=== PATIENT | female | born 2000 | race Hispanic/Latino ===

== ENCOUNTER 2024-10-17 16:39 | Observation (INO) | payer BC, SELFPAY ==
[2024-10-17] VITALS (7 sets, daily range): BP systolic 96–109; BP diastolic 57–75; PULSE 79–107; RESP 16; TEMP 36.5; O2SAT 99; BMI 20.8
--- NOTE | 2024-10-17 17:13 | ED.ABDPAIN ---
HPI - Abdominal Pain General Chief Complaint: Abdominal Pain Stated Complaint: forklift accident, 25 weeks preg Time Seen by Provider: 10/17/24 17:05 Source: patient Mode of arrival: ambulatory Limitations: no limitations History of Present Illness HPI narrative: 23-year-old female approximately 25 weeks presents to the ED after sustaining a forklift accident in which her abdomen struck the steering wheel. Patient stated last menstrual period is 04/26/2024 in her stated estimated due date is 01/30/2025. Her OB Gyne is Dr Bui. She denies any complications during this , has not been told any issues with her placenta. Patient plans to deliver at [facility]. Patient had initially been seen at [place] for this earlier today. She had been accepted for transfer at [facility] and was to go by private vehicle (accepting physicians are listed as Dr Minaya and Dr Rai) for further monitoring/evaluation. However, she elected to present to our hospital instead. Patient reports that she has not yet had any pain medications prior to arrival. She describes slight abdominal pain like a cramping sensation but denies any contractions, leakage of fluid, or vaginal bleeding or spotting. She continues to feel movements without any change. Related Data Allergies Allergy/AdvReac Type Severity Reaction Status Date / Time No Known Allergies Allergy Verified 10/17/24 18:07 Exam Narrative: GENERAL: Well-appearing, well-nourished, and in no acute distress. HEAD: Normocephalic, atraumatic. EYES: Non injected, non icteric ENT: Nares clear, no rhinorrhea or epistaxis. Gross auditory acuity intact. NECK: Supple. No meningismus. CHEST: Speaking in full sentences. No respiratory distress. HEART: Regular rate and rhythm. . ABDOMEN: Gravid with fundal height approximately 4-5cm above umbilicus. Otherwise Soft, nondistended. No rigidity or guarding. Not peritoneal. No tenderness throughout. No overlying ecchymosis. EXTREMITIES: Normal range of motion. No lower extremity edema. SKIN: Warm, dry, no rash. NEURO: No focal deficits. Alert and oriented. Answering questions. Following commands. Normal speech without aphasia or dysarthria. PSYCH: Normal mood and affect. Course Vital Signs Vital signs: Vital Signs Temperature 97.7 F 10/17/24 16:45 Pulse Rate 107 H 10/17/24 16:45 Respiratory Rate 16 10/17/24 16:45 Blood Pressure 106/62 10/17/24 16:45 Pulse Oximetry 99 10/17/24 16:45 Oxygen Delivery Room Air 10/17/24 16:45 Temperature 97.7 F 10/17/24 16:45 Pulse Rate 107 H 10/17/24 16:45 Respiratory Rate 16 10/17/24 16:45 Blood Pressure 106/62 10/17/24 16:45 Pulse Oximetry 99 10/17/24 16:45 Oxygen Delivery Room Air 10/17/24 16:45 MDM - Abdominal Pain MDM Narrative Medical decision making narrative: 23-year-old at 24w6d GA by stated LMP 04/26/24 versus 25w0d by stated TANISHA 01/30/25. In the emergency department she is afebrile with vital signs notable for tachycardia. Will give acetaminophen. RN notes FHR was 160bpm. POC US performed at bedside by myself. There is a fetus consistent with stated dates with good movement and FHR 156. 2+ ketonuria but otherwise urine does not appear infected or even with bacteriuria. Discussed patient with hospital personnel director OBGyn Dr Mcgill and expained the story. He verifies understanding. Given we have no record of her/she does not follow here, don't know her blood type so this is ordered in addition to basic labs. Advised we send her over to L&D and they will get her on the monitor and contact him for evaluation. Labs were drawn by RN and will be sent but can/will be followed up with there. Patient transferred over to L&D/OBGyn. No DC instructions were provided to patient in the ED for this reason. Differential Diagnosis Differential diagnosis: Likely abdominal pain and other (Blunt trauma to abdomen,; placenta previa; placenta abruption; intrauterine demise) Lab Data Attestation: I reviewed the patient's lab results. Labs: Lab Results 10/17/24 10/17/24 Range/Units 17:48 17:49 Urine Color Yellow (Yellow) Urine Appearance Clear (Clear) Urine pH 6.0 (5.0-9.0) Ur Specific [place] 1.026 (1.001-1.035) Urine Protein Negative (Negative) mg/dL Urine Glucose (UA) Negative (Negative) mg/dL Urine Ketones 2+ H (Negative) mg/dL Ur Blood (Man) Negative (Negative) Urine Nitrate Negative (Negative) Urine Bilirubin Negative (Negative) Urine Urobilinogen 1.0 (<2.0) mg/dL Leukocyte Esterase Rfl Negative (Negative) ANT/UL POC Urine HCG, Qual Positive (Negative) Discharge Plan Discharge Clinical Impression: Second trimester Blunt trauma to abdomen Qualifiers: Encounter type: initial encounter Qualified Code(s): S39.91XA - Unspecified injury of abdomen, initial encounter Patient Disposition: Still a Patient Condition: Stable Instructions: Antibiotic Form Patient Language: Egyptian Follow-up/Referrals: PHYSICIAN,DETHISTLER OPERATOR [Primary Care Provider] -
--- OUTSIDE RECORDS SUMMARY | 2024-10-17 17:50 | XMS_ITS | Referral Summary ---
Author Organization [facility] Address [address] [place] [address] Care Team Providers Care Materials Handling Coordinator Name Role Phone No, Physician Primary Care Provider Encounters Date Type Department Care Team Description 10/12/2024 3:15 PM CDT Office Visit [facility] Obstetrical Gynecology [address] [place] [phone] Phoebe Romo MD Third trimester (Primary Dx); Encounter for supervision of normal in first trimester, unspecified 09/15/2024 Orders Only [facility] [address] [place] [phone] Dereje Bui MD Large for gestational age fetus affecting management of mother, antepartum, third trimester, fetus 1 (Primary Dx) 09/15/2024 Telephone [facility] [address] [place] [phone] Dereje Bui MD 09/14/2024 3:00 PM CDT Ancillary Procedure [facility] [address] [place] [phone] Encounter for anatomic survey 09/14/2024 4:00 PM CDT Office Visit [facility] [address] [place] [phone] Dereje Bui MD Encounter for related examination in second trimester (Primary Dx) 08/28/2024 11:30 AM CDT Lab [facility] [address] [place] [phone] Elevated hemoglobin A1c 08/19/2024 Results Follow-Up [facility] [address] [place] [phone] Dereje Bui MD Rubella IgG antibody Blood, RPR Blood, Measles IgG antibody Blood, Additional followed-up results: 12 08/17/2024 Telephone [facility] [address] [place] [phone] Dereje Bui MD 08/16/2024 4:43 PM CDT - 08/16/2024 11:59 PM CDT Hospital Encounter [facility] [address] [place] [phone] Encounter for supervision of normal in first trimester, unspecified ; Encounter for related examination in second trimester Discharge Disposition: Discharge to home or self care 08/16/2024 Telephone [facility] [address] [place] [phone] Dereje Bui MD 08/16/2024 12:05 PM CDT Lab [facility] [address] [place] [phone] Encounter for supervision of normal in first trimester, unspecified 08/16/2024 1:15 PM CDT Office Visit [facility] Medical [facility] Obstetrical Gynecology [address] [place] [phone] Dereje Bui MD Encounter for related examination in second trimester (Primary Dx); Encounter for supervision of normal in first trimester, unspecified ; Gastroesophageal reflux disease, unspecified whether esophagitis present 08/16/2024 11:15 AM CDT Clinical Support [facility] [address] [place] [phone] 08/16/2024 10:45 AM CDT Ancillary Procedure [facility] Obstetrical Gynecology [address] [facility] [address] [place] [address] Establish gestational age, ultrasound from Last 3 Months Allergies No known active allergies Medications simethicone (MYLICON) 125 mg chewable tablet Take 1 tablet (125 mg total) by mouth every 6 (six) hours as needed for flatulence 30 tablet [address] (PROTONIX) 20 mg EC tablet Take 1 tablet (20 mg total) by mouth 2 (two) times a day 60 tablet 5 5 Active polyethylene glycol (MIRALAX) 17 gram/dose bulk powder Take 17 g by mouth daily 510 g 3 5 Active Additional Information Patient not taking.Reported on 10/12/2024 vitamin ferrous fumarate-folic () 28 mg iron- 800 mcg tablet Take 1 tablet by mouth daily 30 tablet 11 5 08/17/19 26 Active doxycycline (doxycycline hyclate) 100 mg capsule TAKE 1 CAPSULE BY MOUTH TWICE DAILY FOR 14 DAYS Active vitamin ferrous fumarate-folic () 28 mg iron- 800 mcg tablet Take 1 tablet by oral route for 30 days. 5 Active dicyclomine (BENTYL) 10 mg capsule Take 1 capsule 3 times a day by oral route as needed for 30 days, for DIARRHEA/ PAIN. Active dicyclomine (BENTYL) 20 mg tablet Active Active Problems Problem Noted Date Diagnosed Date Supervision of normal first , antepartu m 08/16/2024 Gastroesophageal reflux disease 08/16/2024 Irritable bowel syndrome with diarrhea 4 Estimated Date of Delivery Comme nts Yes 01/31/2025 Based on last me nstrual period of 04/26/2024 Social History Tobacco Use Types Packs/Day Years Used Date Smoking Tobacco: Never Smokeless Tobacco: Never Tobacco Cessation:Counseling Given: Not Answered Lamont Depression Scale Answer Date Recorded Lamont Depression Scale Total 6 08/16/2024 The thought of harming myself has occurred to me . Never 08/16/2024 Estimated Date of Delivery Comme nts Yes 01/31/2025 Based on last me nstrual period of 04/26/2024 Sex and Gender Information Value Date Recorded Sex Assigned at Not on file Legal Sex Female 3:16 PM CDT Gender Identity Not on file Sexual Orientation Not on file Last Filed Vital Signs Vital Sign Reading Time Taken Comments Blood Pressure 100/60 10/12/2024 3:27 PM CDT Pulse - - Temperature - - Respiratory Rate - - Oxygen Saturation - - Inhaled Oxygen Concentration - - Weight 55.3 kg (122 lb) 10/12/2024 3:27 PM CDT Height 165.1 cm (5' 5) 10/12/2024 3:27 PM CDT Body Mass Index 20.3 10/12/2024 3:27 PM CDT Plan of Treatment Not on file Procedures Procedure Name Priority Date/Time Associated Diagnosis Comments US OB 14 WEEKS OR OVER W ENDOVAGINAL Schedule Routine, Read Routine (OP Routine) 09/14/2024 3:06 PM CDT Encounter for anatomic survey GTT 50GM 1HR GESTATIONAL SCREEN Routine 08/28/2024 12:43 PM CDT Elevated hemoglobin A1c PANORAMA TEST Routine 2:01 PM CDT Encounter for supervision of normal in first trimester, unspecified HORIZON 14 (VALENTINO-ETHNIC STANDARD) Routine 08/16/2024 2:01 PM CDT Encounter for supervision of normal in first trimester, unspecified PAP WITH REFLEX TO HIGH RISK HPV Routine 08/16/2024 1:50 PM CDT Encounter for related examination in second trimester Encounter for supervision of normal in first trimester, unspecified THINPREP PROCESSING (MOLECULAR COMPONENT) Routine 08/16/2024 1:50 PM CDT Encounter for related examination in second trimester Encounter for supervision of normal in first trimester, unspecified N. GONORRHOEAE/C. TRACHOMATIS AMPLIFICATION Routine 08/16/2024 1:50 PM CDT Encounter for related examination in second trimester Encounter for supervision of normal in first trimester, unspecified TRICHOMONAS VAGINALIS PCR Routine 08/16/2024 1:50 PM CDT Encounter for related examination in second trimester Encounter for supervision of normal in first trimester, unspecified DRUGS OF ABUSE SCREEN, URINE WITH REFLEX CONFIRMATION Routine 08/16/2024 1:20 PM CDT Encounter for supervision of normal in first trimester, unspecified URINE CULTURE Routine 08/16/2024 1:20 PM CDT Encounter for supervision of normal in first trimester, unspecified ANTIBODY SCREEN Routine 08/16/2024 12:22 PM CDT Encounter for supervision of normal in first trimester, unspecified ABO/RH Routine 08/16/2024 12:22 PM CDT Encounter for supervision of normal in first trimester, unspecified CBC WITHOUT DIFFERENTIAL Routine 08/16/2024 12:22 PM CDT Encounter for supervision of normal in first trimester, unspecified HEMOGLOBIN A1C Routine 08/16/2024 12:22 PM CDT Encounter for supervision of normal in first trimester, unspecified HEMOGLOBIN ANALYSIS BY ELECTROPHORESIS Routine 08/16/2024 12:22 PM CDT Encounter for supervision of normal in first trimester, unspecified TYPE AND SCREEN Routine 08/16/2024 12:22 PM CDT Encounter for supervision of normal in first trimester, unspecified VARICELLA ZOSTER ANTIBODY, IGG Routine 08/16/2024 12:22 PM CDT Encounter for supervision of normal in first trimester, unspecified HEPATITIS B SURFACE ANTIGEN Routine 08/16/2024 12:22 PM CDT Encounter for supervision of normal in first trimester, unspecified HEPATITIS C ANTIBODY Routine 08/16/2024 12:22 PM CDT Encounter for supervision of normal in first trimester, unspecified HIV 1/2 ANTIBODY PLUS P24 ANTIGEN Routine 08/16/2024 12:22 PM CDT Encounter for supervision of normal in first trimester, unspecified MEASLES IGG ANTIBODY Routine 08/16/2024 12:22 PM CDT Encounter for supervision of normal in first trimester, unspecified RPR Routine 08/16/2024 12:22 PM CDT Encounter for supervision of normal in first trimester, unspecified RUBELLA IGG Routine 08/16/2024 12:22 PM CDT Encounter for supervision of normal in first trimester, unspecified US OB UNDER 14 WEEKS Schedule Routine, Read Routine (OP Routine) 08/16/2024 10:37 AM CDT Establish gestational age, ultrasound from Last 3 Months Results * US OB 14 Weeks Or Over W Endovaginal (09/14/2024 3:06 PM CDT) Fetus# Fetus1 VIEWPOINT Estimated Weight 397 g&grams VIEWPOINT Placenta Details anterior VIEWPOINT Presentation Vertex VIEWPOINT Anatomical Region Laterality Modality Abdomen N/A Ultrasound 09/14/2024 3:10 PM CDT Impressions 09/14/2024 5:00 PM CDT Physician interpretation: Single living intrauterine gestation with growth at the 90th percentile for the established gestational age of 20 weeks and 1 day. The placenta is anterior. The anatomy survey, cervical length, placentation and amniotic fluid are normal within the limitations of this study. Plan to reassess growth in the 3rd trimester. Narrative Procedure Note Dereje Bui MD - 09/14/2024 IMPRESSION: Physician interpretation: Single living intrauterine gestation withgrowth at the 90th percentile for the established gestational age of 20weeks and 1 day. The placenta is anterior. The anatomy survey,cervical length, placentation and amniotic fluid are normal within thelimitations of this study. Plan to reassess growth in the 3rdtrimester. Dereje Bui MD IMG OB US PROCEDURES Final Result * GTT 50gm 1hr gestational screen (08/28/2024 12:43 PM CDT) GTT 50g gest screen 95 <=140 mg/dL Comment: Interpretive Data Used for suspected gestational diabetes. The screening test uses 50 grams of glucose with sample obtained 1 hr later. Normal range: < 140 mg/dL. A glucose value of >140 mg/dL generally indicates the need for a full diagnostic tolerance test. Reference Interval Info: Diabetes Care 2005, Vol 28. Supplement 1,S37-S42. Report of the Expert Committee on the Diagnosis and Classification of Diabetes Mellitus. Diabetes Care 2020; 43(Supplement 1):S14-31. Current interpretive data was last revised on 2020. Testing performed by: [facility], [address] [place] [address]., [id number] Blood 08/28/2024 12:4 3 PM CDT 08/28/2024 12:51 PM CDT us Dereje Bui MD LAB BLOOD ORDERABLES Final Result [place] [address] [facility] Department [place] [address] * PANORAMA TEST (08/16/2024 2:01 PM CDT) REPORT SUMMARY LOW RISK 08/22/2024 1:30 PM CDT [facility] Comment:LOW RISK REPORT NOTE See Notes 08/22/2024 1:30 PM CDT [facility] GENDER OF FETUS Female 1:30 PM CDT [facility] FRACTION 15.0% 08/22/2024 1:30 PM CDT [facility] TRISOMY 21 RESULT TEXT Low Risk 08/22/2024 1:30 PM CDT [facility] TRISOMY 21 AGE-BASED RISK TEXT (0.09%) 08/22/2024 1:30 PM CDT [facility] TRISOMY 21 RISK SCORE TEXT <1/10,000 (<0.01%) 08/22/2024 1:30 PM CDT [facility] TRISOMY 18 RESULT TEXT Low Risk 08/22/2024 1:30 PM CDT [facility] TRISOMY 18 AGE-BASED RISK TEXT 13,179 (0.03%) 08/22/2024 1:30 PM CDT [facility] TRISOMY 18 RISK SCORE TEXT <1/10,000 (<0.01%) 08/22/2024 1:30 PM CDT [facility] TRISOMY 13 RESULT TEXT Low Risk 08/22/2024 1:30 PM CDT [facility] TRISOMY 13 AGE-BASED RISK TEXT 9,778 (0.01%) 08/22/2024 1:30 PM CDT [facility] TRISOMY 13 RISK SCORE TEXT <1/10,000 (<0.01%) 08/22/2024 1:30 PM CDT [facility] MONOSOMY X RESULT TEXT Low Risk 08/22/2024 1:30 PM CDT [facility] MONOSOMY X AGE-BASED RISK TEXT 1568 (0.18%) 08/22/2024 1:30 PM CDT [facility] MONOSOMY X RISK SCORE TEXT <1/10,000 (<0.01%) 08/22/2024 1:30 PM CDT [facility] TRIPLOIDY RESULT TEXT Low Risk 1:30 PM CDT [facility] 22Q11.2 DELETION SYNDROME RESULT TEXT Low Risk 08/22/2024 1:30 PM CDT [facility] 22Q11.2 DELETION SYNDROME POPULATION-BASED RISK TEXT 12,000 08/22/2024 1:30 PM CDT [facility] 22Q11.2 DELETION SYNDROME RISK SCORE TEXT 1/12,000 08/22/2024 1:30 PM CDT [facility] FOOTNOTES See Notes 08/22/2024 1:30 PM CDT [facility] Comment: Testing Methodology DNA isolated from maternal blood, which contains placental DNA, is amplified at specific loci using a targeted PCR assay and is sequenced using a high- throughput sequencer. fraction is determined using a proprietary algorithm incorporating data from single nucleotide polymorphism-based (SNP-based) next-generation sequencing [Pergament E et al. Obstet Gynecol. 2014 Oct;124(2 Pt 1):210-8]. If there is sufficient fraction, sequencing data is analyzed using a proprietary SNP- based algorithm to determine the copy number for chromosomes 13, 18, 21, X and Y. If ordered, specific microdeletions will be evaluated using similar methodology [Indra RIOS et al. Am J Obstet Gynecol. 2015 May;212(3):332.e1-9]. If the fraction is insufficient, an additional algorithm to determine whether there is an increased risk for triploidy, trisomy 18, and trisomy 13 may be utilized, known as fraction based risk assessment (FFBR) [Harish et al. Ultrasound Obstet Gynecol 2019; 53:73-79]. If ordered on a vanishing twin , a proprietary analysis will be performed to differentiate between the viable/living fetus and the vanished fetus to allow for risk assessment of copy number of chromosomes 13,18, 21, X, Y, and specific microdeletions in the viable/living twin using the above described SNP- based algorithm. If ordered, and patient is RHD negative by genotype, RHD status will be evaluated using a proprietary algorithm if fraction is sufficient [Emeli Barnett et al. Obstet Gynecol 2023;145:1?7]. However, some samples will not produce a result due to failure to meet the necessary quality thresholds. This test has been validated on women with a sunshine, twin, vanishing twin, or egg donor of at least nine weeks gestation. A result will not be available for higher order multiples and multiple gestation pregnancies with an egg donor or surrogate, or bone marrow transplant recipients. Complete test panel is not available for twin gestations and pregnancies achieved with an egg donor or surrogate. For twin pregnancies with a fraction value below the threshold for analysis, a sum of the fractions for both twins will be reported. As this assay is a screening test and not diagnostic, false positives and false negatives can occur. High risk test results need diagnostic confirmation by alternative testing methods. Low risk results do not fully exclude the diagnosis of any of the syndromes nor do they exclude the possibility of other chromosomal abnormalities or defects, which are not a part of this test. Potential sources of inaccurate results include, but are not limited to, mosaicism, low fraction, limitations of current diagnostic techniques, or misidentification of samples. This test will not identify all deletions associated with each microdeletion syndrome. This test has been validated for deletions ?0.5 Mb within the 22q11.2 A-D region. This test has been validated on full region deletions only for 1p36 deletion syndrome, Cri-du-chat syndrome, Prader Willi syndrome and Angelman syndrome and may be unable to detect smaller deletions. Microdeletion risk score may be dependent upon fraction, as deletions on the maternally inherited copy are difficult to identify at lower fractions. Test results should always be interpreted by a clinician in the context of clinical and familial data with the availability of genetic counseling when appropriate. Disclaimers The extraction, library preparation, and sequencing of this test were performed by [facility] [address] [place] [address] [address] [place] [address] (CLIA ID [id number]). The data analysis and reporting of this test were performed by [employer] [address] [place] [id number] (CLIA ID [id number]). The performance characteristics of this test were developed by [facility].(CLIA ID [id number]). This test has not been cleared or approved by the U.S. Food and Drug Administration (FDA). These laboratories are regulated under CLIA as qualified to perform high-complexity testing. 2024 [employer]. All Rights Reserved. Please refer to the attached PDF report Reviewed By: Rafael Bowen M.D., Ph.D., [facility], Senior First Line Production Supervisor [facility] 3D Modeler: Kristyn Borrego, Ph.D., [facility] IF THE ORDERING PROVIDER HAS QUESTIONS OR WISHES TO DISCUSS THE RESULTS, PLEASE CONTACT US AT [phone] #[phone]. Ask for the NIPT genetic counselor environmental services manager. Blood specimen (specimen) Venous blood specimen / Unknown 08/16/2024 2:01 PM CDT 08/22/2024 1:30 PM CDT Dereje Bui MD LAB GENETIC TESTING Final Result [facility] [address] [place] [address], [facility] * Horizon 14 (Valentino-Ethnic Standard) (08/16/2024 2:01 PM CDT) REPORT SUMMARY Negative 08/24/2024 4:34 PM CDT [facility] Comment:Negative for 14 out of 14 diseases. ALPHA-THALASSEMIA Negative 025 4:34 PM CDT [facility] BETA-HEMOGLOBINOP ATHIES Negative 08/24/2024 4:34 PM CDT [facility] SELVIN DISEASE Negative 4:34 PM CDT [facility] CYSTIC FIBROSIS Negative 4:34 PM CDT [facility] DUCHENNE/CAVAZOS MUSCULAR DYSTROPHY Negative 08/24/2024 4:34 PM CDT [facility] FAMILIAL DYSAUTONOMIA Negative 08/24/2024 4:34 PM CDT [facility] FRAGILE X SYNDROME Negative 08/24/2024 4:34 PM CDT [facility] Comment: NEGATIVE Fragile X Syndrome (X-linked) results 30 and 30 CGG repeats were detected in the FMR1 genes. GALACTOSEMIA Negative 08/24/2024 4:34 PM CDT [facility] GAUCHER DISEASE Negative 4:34 PM CDT [facility] MEDIUM CHAIN ACYL-COA DEHYDROGENASE DEFICIENCY Negative 08/24/2024 4:34 PM CDT [facility] POLYCYSTIC KIDNEY DISEASE AUTOSOMAL RECESSIVE Negative 08/24/2024 4:34 PM CDT [facility] ANIJB-RMHAM-JHSDX SYNDROME Negative 08/24/2024 4:34 PM CDT [facility] SPINAL MUSCULAR ATROPHY Negative 08/24/2024 4:34 PM CDT [facility] Comment: NEGATIVE Spinal Muscular Atrophy (SMA) Results SMN1: Two copies; [id number]>G: absent; the absence of the g.51427V>G variant decreases the chance to be a silent (2+0) carrier. JUAN-SACHS DISEASE Negative 025 4:34 PM CDT [facility] PANEL NOTES See Notes 08/24/2024 4:34 PM CDT [facility] REPORT NOTE See Notes 08/24/2024 4:34 PM CDT [facility] FOOTNOTES See Notes 08/24/2024 4:34 PM CDT [facility] Comment: Please see the attached PDF for information regarding Conditions, Methodology, Disclaimers, and further information. Test performed by [facility]. : [id number] [facility], [address], [place] [address] CLIA ID #[id number] CLIA 3D Modeler: Kristyn Borrego, Ph.D., [facility] Blood specimen (specimen) Venous blood specimen / Unknown 08/16/2024 2:01 PM CDT 08/24/2024 4:34 PM CDT Dereje Bui MD LAB GENETIC TESTING Final Result [facility] [address] [place] [address], [facility] * ThinPrep processing (Molecular component) (08/16/2024 1:50 PM CDT) Pathologist [facility] ThinPrep processing (Molecular component) Specimen received for processing. [facility] Comment:Testing performed by : [facility], [address] [facility] [place] [address] Endocervical 08/16/2024 1:50 PM CDT 08/18/2024 2:29 PM CDT Dereje Bui MD LAB BODY FLUIDS AND STOOLS ORDERABLES Final Result [facility] [address] [facility] Department [place] [address] [facility] * Pap with reflex to High Risk HPV and Genotyping (Cytology Component) (08/16/2024 1:50 PM CDT) Thin prep (Pap test) 08/16/2024 1:50 PM CDT 08/17/2024 9:44 AM CDT Narrative PATHOLOGY [facility] - 08/20/2024 7:42 AM CDT EPIC results best viewed via link to PDF [facility] Surgical Path[facility] [address] [facility], [place] [address] Note to Patients: This report may contain a detailed description of human tissue sent by a health care provider to the laboratory for pathologic evaluation. The content of this report is essential for diagnosis and may provide important critical findings. This information may be unfamiliar to patients to review without a medical professional present. It is advised that the patient review this report in the presence of a health care provider who can answer questions and explain the details. CYTOPATHOLOGY REPORT FINAL Patient Name: BETTY SHAW Gender: F : 2000 (Age: 23) Address: [address] [place] [address] Hospital #: [id number] Service: DEFAULT Location: Patient Type: [facility] SPECIMEN Taken: 08/16/2024 Received: 08/17/2024 Accessioned: 08/17/2024 Reported: 08/20/2024 Physician(s): Dr. Dereje Bui M.D. FINAL INTERPRETATION SOURCE OF SPECIMEN Liquid based Thin Prep pap with Reflex HPV: STATEMENT OF ADEQUACY - Satisfactory for evaluation - No endocervical/transformation zone sample present in a patient GENERAL CATEGORIZATION: - Negative for squamous intraepithelial lesion or malignancy 08/20/2024 07:42 CAMILLA Lam(ASCP) Report Electronically Reviewed and Signed Out By CAMILLA Lam(ASCP) 08/20/2024 07:42:55 Cervicovaginal Cytology (Pap Test) Disclaimer: The Pap test is a screening test used to detect cervical cancer and its precursors; it is not a diagnostic procedure. False negative and false positive results do occur. Pap test results should be interpreted in the context of pertinent clinical information and biopsy results as indicated. CMS Clinical Laboratory Improvement Amendments (CLIA) mandate that cytologic and histologic results be correlated for laboratory senior quality manager & improvement standards. FOR ALL HIGH-GRADE CASES we request submission of follow-up histological material and/or reports that have not been previously provided so that we may fulfill said required standards. Gross Description A. Liquid based Thin Prep pap with Reflex HPV: Cervical/vaginal - Screening ThinPrep Clinical Diagnosis and History Last Menstrual Period: 04-26-24 Menstrual History: Irregular Cycles The patient is a 23 year old female with screening. Report Images and scanned documents, if included only viewable in PDF version The performance characteristics of some immunohistochemical stains, in-situ hybridization and fluorescence in-situ hybridization tests and immunophenotyping by flow cytometry cited in this report (if any) were determined by the Surgical Pathology Department at [facility] as part of an ongoing dairy quality assurance officer program and in compliance with federally mandated regulations drawn from the Clinical Laboratory Improvement Act of 1988 (CLIA '88). Some of these tests rely on the use of analyte specific reagents and are subject to specific labeling requirements by the US Food and Drug Administration. Such diagnostic tests may only be performed in a facility that is certified by the Department of Health and Human Services as a high complexity laboratory under CLIA '88. The FDA has determined that such clearance or approval is not necessary. This test is used for clinical purposes. It should not be regarded as investigational or for research. Nevertheless, federal rules concerning the medical use of analyte specific reagents require that the following disclaimer be attached to the report: This test was developed and its performance characteristics determined by the Surgical Pathology Department of [facility]. It has not been cleared or approved by the U. S. Food and Drug Administration. Dereje Bui MD LAB CYTOLOGY ORDERABLES [facility] Result PATHOLOGY [facility] * N. gonorrhoeae/C. trachomatis Amplification Vaginal (08/16/2024 1:50 PM CDT) C. trachomatis Not Detected [facility] Comment:Testing performed by : [facility], [address] [place]., [address] N. gonorrhoeae Not Detected [facility]Y Comment: Interpretive Data This assay detects Chlamydia trachomatis and Neisseria gonorrhoeae by nucleic acid amplification testing (NAAT). This assay has been cleared by the [place] Food and Drug administration. The performance characteristics of this test have been verified by the [facility] Infectious Disease laboratory. The performance characteristics of this test have not been evaluated in individuals less than 14 years of age. Current Interpretive Data was last revised on 2023. Testing performed by: [facility], [address] [place]., [address] Vaginal (None) 08/16/2024 1: 50 PM CDT 08/16/2024 9:30 PM CDT Dereje Bui MD LAB MICROBIOLOGY - GENERAL ORDERABLES Final Result Performing Organization Address [facility] de Phone Number [address] [address] [facility] * Trichomonas vaginalis PCR Vaginal (08/16/2024 1:50 PM CDT) Pathologist [facility] [place] Trichomonas DNA Not Detected [facility] Comment: Interpretive Data This assay detects Trichomonas vaginalis by nucleic acid amplification testing (NAAT). This assay has been cleared by the [place] Food and Drug administration. The performance characteristics of this test have been verified by the [facility] laboratory. The performance of this test has not been evaluated in individuals less than 18 years of age. Current Interpretive Data was last revised on 2023. Testing performed by: [facility], [address] [place]., [address] Vaginal 08/16/2024 1:50 PM CDT 08/16/2024 9:30 PM CDT Dereje Bui MD LAB MICROBIOLOGY - GENERAL ORDERABLES Final Result Performing Organization Address [facility] de Phone Number [address] [address] [facility] * Drugs of Abuse Screen, Urine with Reflex Confirmation (08/16/2024 1:20 PM CDT) Pathologist [facility] [place] Amphetamine, ur Not Detected CutOff 500ng/mL Comment: Interpretive Data - Amphetamines: Samples containing greater than 500 ng/mL d-methamphetamine or other cross-reacting amphetamine compounds are reported as positive. Amphetamine immunoassays are subject to significant false positive rates due to cross-reactivity of non-amphetamine drugs. Confirmatory testing required for definitive results. Current Interpretive Data was last reviewed 2022. Testing performed by: [address] [address] Barbiturates, ur Not Detected CutOff 200ng/mL [facility] Comment: Interpretive Data - Barbiturates: Samples containing greater than 200 ng/mL secobarbital or other cross-reacting barbiturate compounds are reported as positive. False positive and false negative results are possible. Confirmatory testing required for definitive results. Current Interpretive Data was last reviewed 2022. Testing performed by: [facility], [address] [place] [address]., [address] Benzodiazepines, ur Not Detected CutOff 100ng/mL [facility] Comment: Interpretive Data - Benzodiazepines: Samples containing greater than 100 ng/mL nordiazepam or other cross-reacting compounds are reported as positive. False positive and false negative results are possible. Confirmatory testing required for definitive results. Current Interpretive Data was last reviewed 2022. Testing performed by: [facility], [address] [place] [address]., [address] Cannabinoids, ur Not Detected CutOff 50 ng/mL [facility] Comment: Interpretive Data - Cannabinoids: Samples containing greater than 50 ng/mL delta-9 THC -COOH or other cross- reacting compounds are reported as positive. False positive and false negative results are possible. Confirmatory testing required for definitive results. Current Interpretive Data was last reviewed 2022. Testing performed by: [address] [address] Cocaine, ur Not Detected CutOff 150ng/mL [facility] Comment: Interpretive Data - Cocaine: Samples containing greater than 150 ng/mL benzoylecgonine or other cross- reacting compounds are reported as positive. False positive and false negative results are possible. Confirmatory testing required for definitive results. Current Interpretive Data was last reviewed 2022. Testing performed by: [address] [address] Fentanyl, Ur Not Detected Cutoff 1 ng/mL [facility] Comment: Interpretive Data - Fentanyl: Samples containing greater than 1 ng/mL fentanyl or other cross-reacting fentanyl compounds are reported as positive. False positive and false negative results are possible. Confirmatory testing required for definitive results. Current Interpretive Data was last reviewed 2022. Testing performed by: [address] [address] Methadone, ur Not Detected CutOff 300ng/mL [facility] Comment: Interpretive Data - Methadone: Samples containing greater than 300 ng/mL d,l-methadone or other cross-reacting compounds are reported as positive. False positive and false negative results are possible. Confirmatory testing required for definitive results. Current Interpretive Data was last reviewed 2022. Testing performed by: [address] [address] Opiates, ur Not Detected CutOff 300ng/mL LE Comment: Interpretive Data - Opiates: Samples containing greater than 300 ng/mL morphine or other cross-reacting compounds are reported as positive. False positive and false negative results are possible. Confirmatory testing required for definitive results. Current Interpretive Data was last reviewed 2022. Testing performed by: [address] [address] Oxycodone, ur Not Detected CutOff 100ng/mL [facility] Comment: Interpretive Data - Oxycodone: Samples containing greater than 100 ng/mL oxycodone or other cross-reacting compounds are reported as positive. False positive and false negative results are possible. Confirmatory testing required for definitive results. Current Interpretive Data was last reviewed 2022. Testing performed by: [address] [address] Phencyclidine, ur Not Detected CutOff 25 ng/mL [facility] Comment: Interpretive Data - Phencyclidine: Samples containing greater than 25 ng/mL phencyclidine or other cross-reacting compounds are reported as positive. False positive and false negative results are possible. Confirmatory testing required for definitive results. Current Interpretive Data was last reviewed 2022. Testing performed by: [address] [address] Urine Creatinine 78 mg/dL LE Comment: Interpretive Data Urine Creatinine: < 10 mg/dL is extremely dilute = or > 10 but < 20 mg/dL is dilute = or > 20 mg/dL is normal Current Interpretive Data was last revised on 2017. Testing performed by: [facility], [address] [place] [address]., [address] Urine 08/16/2024 1:20 PM CDT 08/16/2024 6:15 PM CDT Narrative LE - 08/16/2024 6:43 PM CDT Drug of Abuse screening is performed by immunoassay for medical purposes only. This is not to be used for Pain Management purposes. If Detected, confirmation testing will be performed for Amphetamines, Cocaine, Fentanyl, Methadone, Opiates, Oxycodone or Phencyclidine. Dereje Bui MD LAB URINE ORDERABLES Final Result Performing Organization Address City/[facility] Co de Phone Number [facility] [address] [facility] [place] [address] * Urine culture Urine, clean voided (08/16/2024 1:20 PM CDT) Report Final Report: Less than 100,000 colonies/mL (clinically insignificant growth based on current clinical standards) Comment:Testing performed by : [facility], [address] [facility] [place] [address] Organism (CLINICALLY INSIGNIFICANT GROWTH LE Urine, clean voided 08/16/2024 1:20 PM CDT 08/16/2024 9:23 PM CDT Narrative LE - 08/18/2024 1:44 PM CDT Testing performed by [facility] ([phone]) Dereje Bui MD LAB MICROBIOLOGY - GENERAL ORDERABLES Final Result Performing Organization Address City/[facility]/ZIP Co de Phone Number [place] [id number] [facility] [place] [address] * HIV 1/2 Antibody plus p24 Antigen Blood (08/16/2024 12:22 PM CDT) HIV 1/2 ab + p24 ag Nonreactive Nonreactive Comment:Nonreactive for HIV- 1 antigen and HIV-1/HIV-2 antibodies. No laboratory evidence of HIV infection. If acute HIV infection is suspected, consider testing for HIV-1 RNA. Current interpretive data was last revised on 21. Blood 08/16/2024 12:2 2 PM CDT 08/16/2024 4:29 PM CDT Dereje Bui MD LAB MICROBIOLOGY - GENERAL ORDERABLES Final Result [place] [address] [facility] [place] [address] * Hemoglobin analysis by electrophoresis (08/16/2024 12:22 PM CDT) RBC 4.25 3.90 - 5.20 M/cumm Comment:Testing performed by : [facility], [address] [place] [address], [address] Hgb 13.0 11.9 - 15.5 g/dL [facility] Comment:Testing performed by : [facility], [address] [place] [address], [address] MCV 89.4 81.3 - 96.4 fL [facility]Y Comment:Testing performed by : [facility], 1 [facility], [address] Rdw 13.3 11.1 - 14.9 % LE REY Comment:Testing performed by : [facility], [address] [facility], [address] Hgb electrophoresis , interp Please see comment [facility]Y Comment: Normal hemoglobin pattern for age Reviewed and signed by Raulito Aden MD 08/17/2024 Testing performed by: [facility], [address] [facility], [address] Hgb A 97.7 96.0 - 98.5 % LE REY Comment:Testing performed by : [facility], [address] [place] [address], [address] Hgb A2 2.3 1.5 - 3.2 % [facility] Comment:Testing performed by : [facility], [address] [place]., [address] Hgb F <0.4 0.0 - 0.9 % LE Comment:Testing performed by : [facility], [address] [place]., [address] Blood 08/16/2024 12:2 2 PM CDT 08/16/2024 1:44 PM CDT Dereje Bui MD LAB BLOOD ORDERABLES Final Result Performing Organization Address City/[facility] Co de Phone Number LE [facility] [facility] [place] [address] * Hepatitis C antibody Blood (08/16/2024 12:22 PM CDT) Pathologist [facility] [place] Hep C Ab Nonreactive Nonreactive Comment: Antibodies to HCV not detected. Does NOT exclude the possibility of recent exposure to HCV. Current interpretive data was last revised on 21 Interpretive Data Nonreactive: Antibodies to HCV not detected. Does NOT exclude the possibility of recent exposure to HCV. Equivocal: Equivocal for HCV antibodies. Supplemental molecular testing will be automatically performed to determine infection status in accordance with current CDC screening recommendations. Reactive: Positive for HCV antibodies. This may represent current or past HCV infection. Supplemental molecular testing will be automatically performed to determine current infection status in accordance with current CDC screening recommendations. Interpretive data was last revised on 2019. Blood 08/16/2024 12:2 2 PM CDT 08/16/2024 4:29 PM CDT Dereje Bui MD LAB MICROBIOLOGY - GENERAL ORDERABLES Final Result Performing Organization Address City/[facility] Co de Phone Number [place] [address] [facility] [place] [address] * (ABNORMAL) Measles IgG antibody Blood (08/16/2024 12:22 PM CDT) Measles IgG Nonreactiv e(A) Comment: Non-reactive: No detectable antibody to measles. Such individuals are presumed to be uninfected and susceptible to primary infection. Testing performed by: [facility], [address] [facility], [place]., [address] Blood 08/16/2024 12:2 2 PM CDT 08/16/2024 5:48 PM CDT Dereje Bui MD LAB MICROBIOLOGY - GENERAL ORDERABLES Final Result Performing Organization Address [facility] Co de Phone Number [address] [place] [address] * ABO/Rh (08/16/2024 12:22 PM CDT) ABO/Rh O Positive Comment:Testing performed by : [facility], [address] [place] [address]., [address] Blood 08/16/2024 12:2 2 PM CDT 08/16/2024 1:39 PM CDT Narrative [facility] - 08/16/2024 2:22 PM CDT Has the patient had Daratumumab or Isatuximab in the past 6 months?->Unknown Hx of or candidate for Bone Marrow/Stem Cell transplant?->No Dereje Bui MD LAB BLOOD BANK TEST ORDERA BLES Final Result Performing Organization Address [facility] Co de Phone Number [address] [employer] [place] [address] * Rubella IgG antibody Blood (08/16/2024 12:22 PM CDT) Rubella IgG Reactive Reactive Blood 08/16/2024 12:2 2 PM CDT 08/16/2024 4:29 PM CDT Dereje Bui MD LAB MICROBIOLOGY - GENERAL ORDERABLES Edited Result - Final Performing Organization Address City/[facility]/ZIP Co de Phone Number [address] [place] [address] * RPR Blood (08/16/2024 12:22 PM CDT) Pathologist [facility] [place] RPR Nonreactive Nonreactive Comment:Testing performed by : [facility], [address] [place]., [address] Blood 08/16/2024 12:2 2 PM CDT 08/16/2024 5:48 PM CDT Dereje Bui MD LAB MICROBIOLOGY - GENERAL ORDERABLES Final Result Performing Organization Address City/[facility]/ZIP Co de Phone Number [address] [place] [address] * Hepatitis B Surface Antigen Blood (08/16/2024 12:22 PM CDT) Pathologist [facility] [place] HepBsAg Nonreactive Nonreactive Blood 08/16/2024 12:2 2 PM CDT 08/16/2024 4:29 PM CDT Dereje Bui MD LAB MICROBIOLOGY - GENERAL ORDERABLES Final Result Performing Organization Address City/[facility] Co de Phone Number [address] [place] [address] * (ABNORMAL) CBC without differential (08/16/2024 12:22 PM CDT) Pathologist [facility] [place] WBC 10.00(H) 3.80 - 9.90 K/cumm Comment:Testing performed by : [address] [address] Hgb 13.0 11.9 - 15.5 g/dL [facility]Y Comment:Testing performed by : [address] [address] Hct 38.5 35.6 - 45.5 % LE REY Comment:Testing performed by : [address] [address] Plt 320 150 - 400 K/cumm LE REY Comment:Testing performed by : [address] [address] MPV 10.1 9.1 - 12.3 fL LE REY Comment:Testing performed by : [address] [address] RBC 4.25 3.90 - 5.20 M/cumm LE [facility]Y Comment:Testing performed by : [address] [address] MCV 90.6 81.3 - 96.4 fL [facility]Y Comment:Testing performed by : [address] [address] MCH 30.6 27.1 - 33.3 pg LE REY Comment:Testing performed by : [address], [address] MCHC 33.8 32.3 - 35.7 g/dL LE [facility]Y Comment:Testing performed by : [address], [address] RDW CV 13.2 11.1 - 14.9 % LE REY Comment:Testing performed by : [address], [address] RDW SD 43.1 35.7 - 48.1 fL LE REY Comment:Testing performed by : [address] [address] NRBC abs 0.00 0.00 - 0.01 K/cumm LE REY Comment:Testing performed by : [address] [address] Blood 08/16/2024 12:2 2 PM CDT 08/16/2024 1:44 PM CDT us Dereje Bui MD LAB BLOOD ORDERABLES Final Result [facility] [address] [facility] [place] [address] * Antibody screen (08/16/2024 12:22 PM CDT) Jillian, indirect, Gel Interpretation Negative ABSC Comment:Testing performed by : [address], [place]., [address] Blood 08/16/2024 12:2 2 PM CDT 08/16/2024 1:39 PM CDT Narrative LE - 08/16/2024 2:22 PM CDT Has the patient had Daratumumab or Isatuximab in the past 6 months?->Unknown Hx of or candidate for Bone Marrow/Stem Cell transplant?->No Dereje Bui MD LAB BLOOD BANK TEST ORDERA BLES Final Result Performing Organization Address [facility] Co de Phone Number [address] [address] * (ABNORMAL) Varicella Zoster IgG antibody Blood (08/16/2024 12:22 PM CDT) [facility] VZV IgG Nonreacti ve(A) Reactive Comment: Non-reactive: No detectable antibody to Varicella-zoster virus. Such individuals are presumed to be uninfected and to be susceptible to primary infection. Testing performed by: [facility], [address] [place] [address]., [address] Blood 08/16/2024 12:2 2 PM CDT 08/16/2024 5:48 PM CDT Dereje Bui MD LAB MICROBIOLOGY - GENERAL ORDERABLES Final Result Performing Organization Address [facility] Co de Phone Number [address] [address] * (ABNORMAL) Hemoglobin A1c (08/16/2024 12:22 PM CDT) [facility] Hgb A1C 5.8(H) 4.0 - 5.6 % Comment:Testing performed by : [facility], [address] [place] [address]., [address] Estimated Average Glucose 120 mg/dL [facility] Comment: The ADA recommends reporting an estimated Average Glucose (eAG) with all Hemoglobin A1c results using the equation derived from a study of 507 normal and diabetic adults. Minority populations were underrepresented and children were not included. (Diabetes Care 31:8359-3181, 2008). The eAG is not equivalent to a fasting glucose. Testing performed by: [facility], [address] [place] [address], [place]., [address] Blood 08/16/2024 12:2 2 PM CDT 08/16/2024 1:44 PM CDT us Dereje Bui MD LAB BLOOD ORDERABLES Final Result [place] [address] [facility] [place] [address] * US Ob Under 14 Weeks (08/16/2024 10:37 AM CDT) Fetus# Fetus1 VIEWPOINT Estimated Weight 149 g&grams VIEWPOINT Placenta Details anterior VIEWPOINT Presentation Vertex VIEWPOINT Anatomical Region Laterality Modality Abdomen N/A Ultrasound 08/16/2024 10:4 0 AM CDT Impressions 08/16/2024 1:37 PM CDT Physician interpretation: Single living intrauterine gestation at 16 weeks and 0 days by last menstrual period for an TANISHA of 01/31/2025, ultrasound size consistent with dates. The placenta is anterior. Additional limited anatomy views are normal. Narrative Procedure Note Dereje Bui MD - 08/16/2024 IMPRESSION: Physician interpretation: Single living intrauterine gestation at 16weeks and 0 days by last menstrual period for an TANISHA of 01/31/2025,ultrasound size consistent with dates. The placenta is anterior.Additional limited anatomy views are normal. us Phoebe Romo MD IMG OB US PROCEDURES Final Result from Last 3 Months Insurance [facility] IDPA Care Teams Materials Handling Coordinator Relationship Specialty Start Date End Date No, Physician PCP - General 07/06/24
--- OUTSIDE RECORDS SUMMARY | 2024-10-17 17:50 | XMS_ITS | Encounter Summary ---
Author Organization [facility] Address [address] [place] [address] Care Team Providers Care Bead Stringer Name Role Phone No, Physician Primary Care Provider [phone] Encounter Details Date Type Department Care Team ([facility] st Contact Info) Description 08/19/2024 Results Follow-Up [facility] [address] [place], [place] [id number] Dereje Bui MD [address] [id number] Rubella IgG antibody Blood, RPR Blood, Measles IgG antibody Blood, Additional followed-up results: 12 Social History Tobacco Use Types Packs/Day Years Used Date Smoking Tobacco: Never Smokeless Tobacco: Never [place] Depression Scale Answer Date Recorded [place] Depression Scale Total 6 08/16/2024 The thought of harming myself has occurred to me . Never 08/16/2024 Estimated Date of Delivery Comme nts Yes 01/31/2025 Based on last me nstrual period of 04/26/2024 Sex and Gender Information Value Date Recorded Sex Assigned at Not on file Legal Sex Female 3:16 PM CDT Gender Identity Not on file Sexual Orientation Not on file documented as of this encounter Plan of Treatment Not on file documented as of this encounter Results * GTT 50gm 1hr gestational screen (08/28/2024 [...] last revised on 2020. Testing performed by: [facility], [address] [place] [address]., [address] Blood 08/28/2024 12:4 3 PM CDT 08/28/2024 12:51 PM CDT us Dereje Bui MD LAB BLOOD ORDERABLES Final Result [place] [id number] [facility] Department [place] [address] documented in this encounter Visit Diagnoses Diagnosis Elevated hemoglobin A1c- Primary Other abnormal blood chemistry documented in this encounter Care Teams Bead Stringer Relationship Specialty Start Date End Date No, Physician PCP - General 07/06/24 documented as of this encounter
--- OUTSIDE RECORDS SUMMARY | 2024-10-17 17:50 | XMS_ITS | Clinical Summary ---
Author Organization [facility] Address [address] [place] [address] Care Team Providers Care It Engineer Name Role Phone No, Physician Primary Care Provider [phone] Allergies No known active allergies Medications simethicone [...] disease 08/16/2024 Irritable bowel syndrome with diarrhea Estimated Date of Delivery Comme nts Yes 01/31/2025 Based on last me nstrual period of 04/26/2024 Encounters Date Type Department Care Team Description 10/12/2024 3:15 PM CDT Office Visit [facility] Obstetrical Gynecology [address] [place] [address] [phone] Phoebe Romo MD Third trimester (Primary Dx); Encounter for supervision of normal in first trimester, unspecified 09/15/2024 Orders Only [facility] Obstetrical Gynecology [address] [place] [address] [phone] Dereje Bui MD Large for gestational age fetus affecting management of mother, antepartum, third trimester, fetus 1 (Primary Dx) 09/15/2024 Telephone [facility] Obstetrical Gynecology [address] [place] [address] [phone] Dereje Bui MD 09/14/2024 4:00 PM CDT Office Visit [facility] Obstetrical Gynecology [address] [place] [address] [phone] Dereje Bui MD Encounter for related examination in second trimester (Primary Dx) 09/14/2024 3:00 PM CDT Ancillary Procedure [facility] Obstetrical Gynecology [address] [place] [address] [phone] Encounter for anatomic survey 08/28/2024 11:30 AM CDT Lab [facility] [address] [place] [phone] Elevated hemoglobin A1c 08/19/2024 Results Follow-Up [facility] [address] [place] [phone] Dereje Bui MD Rubella IgG antibody Blood, RPR Blood, Measles IgG antibody Blood, Additional followed-up results: 12 08/17/2024 Telephone [facility] Obstetrical Gynecology [address] [place] [phone] Dereje Bui MD 08/16/2024 4:43 PM CDT - 08/16/2024 11:59 PM CDT Hospital Encounter [facility] [address] [place] [address] Encounter for supervision of normal in first trimester, unspecified ; Encounter for related examination in second trimester Discharge Disposition: Discharge to home or self care 08/16/2024 1:15 PM CDT Office Visit [facility] Obstetrical Gynecology [address] [place] [phone] Dereje Bui MD Encounter for related examination in second trimester (Primary Dx); Encounter for supervision of normal in first trimester, unspecified ; Gastroesophageal reflux disease, unspecified whether esophagitis present 08/16/2024 12:05 PM CDT Lab [facility] Office Building [address] [place] [phone] Encounter for supervision of normal in first trimester, unspecified 08/16/2024 11:15 AM CDT Clinical Support [facility] Obstetrical Gynecology [address] [place] [phone] 08/16/2024 10:45 AM CDT Ancillary Procedure [facility] Obstetrical Gynecology [address] [place] [phone] Establish gestational age, ultrasound 08/16/2024 Telephone [facility] Obstetrical Gynecology [address] [place] [phone] Dereje Bui MD from Last 3 Months Surgical History Surgery Date Site/Laterality Comments APPENDECTOMY Family History Medical History Relation Name Comments Breast cancer Neg Hx Colon cancer Neg Hx Ovarian cancer Neg Hx Uterine cancer Neg Hx Social History Tobacco Use Types Packs/Day Years Used Date Smoking Tobacco: Never Smokeless Tobacco: Never Tobacco Cessation:Counseling Given: Not Answered [place] Depression Scale Answer Date Recorded [place] Depression Scale Total 6 08/16/2024 The thought of harming myself has occurred to me . Never 08/16/2024 Estimated Date of Delivery Comme nts Yes 01/31/2025 Based on last me nstrual period of 04/26/2024 Sex and Gender Information Value Date Recorded Sex Assigned at Not on file Legal Sex Female 3:16 PM CDT Gender Identity Not on file Sexual Orientation Not on file Obstetrics History Para Term AB IAB SAB Ectopic Multiple Livin g Live Births 1 Date Outcome GA Total Labor Labor/2nd/3rd Weight Sex Type Anes PTL Lexus A1 A5 Name Clin Current Summary Episode Dates Number of Fetuses Estimated Date of Delivery 08/16/2024 - Present (10/17/2024) 1 01/31/2025 (set by Mary Stack RN on 08/16/2024 based on Last Menstrual Period on 04/26/2024) Dating Summary Based On TANISHA GA Diff Last Menstrual Period on 04/26/2024 01/31/2025 Working Ultrasound on 08/16/2024 01/28/2025 +3d GA:16w3d Overview and Plan :Sunshine Support person:Sonny Delivery Plans Planned delivery method:Vaginal Planned delivery location:[facility] Overview Surveillance of EDC by LMP = 16 week US O+/I/-/-, HIV and RPR NR Genetics: low risk Anatomy: 20 weeks GCT: 26-28 weeks 3rd trim CBC/HIV/RPR Tdap: 27+ weeks GBS: 36 weeks, or sooner if early delivery indicated Social Barriers: malaysian speaking/ limited cymro Mode of feeding: Method of contraception: Delivery Planning: TBD Vitals Pregravid Weight Height TWG (As of 10/17/2024) Pregrav id BMI 52.2 kg (115 lb) 165.1 cm (5' 5) 3.175 kg (7 lb) 19.1 4 Notes Progress Notes - Office Visi t - 10/12/2024 - GA:24w1d 10/12/2024 - 24w1d - Harriett Romo MD Return OB Visit Betty Shaw is a 23 y.o. at 24w1d No VB or LOF Endorses active movement GI symptoms stable Objective BP 100/60 Ht 165.1 cm (5' 5) Wt 122 lb (55.3 kg) LMP 04/26/2024 BMI 20.30 kg/m TW lb (3.175 kg) Assessment and Plan - reviewed 3T labs, including 1 hr GTT - all questions answered - has US next visit Surveillance of EDC by LMP = 16 week US O+/I/-/-, HIV and RPR NR Genetics: NIPT LR XX, carrier screening negative 08/16 Anatomy: Complete, LGA EFW 90% - repeat EFW at 28 weeks Anterior placenta GCT: 26-28 weeks 3rd trim CBC/HIV/RPR Tdap: 27+ weeks GBS: 36 weeks, or sooner if early delivery indicated Social Barriers: malaysian speaking primary/somewhat limited cymro Mode of feeding: breast Method of contraception: Delivery Planning: TBD Pain management: Support: Elevated A1c: 5.8%, normal early 1 hr GERD, IBS Predates - consider GI referral Regimen: Protonix, MiraLax, simethicone Consider retesting for H pylori Phoebe Romo MD Progress Notes - Office Visi t - 09/14/2024 - GA:20w1d 09/14/2024 - 20w1d - Dereje Bui MD Return OB Visit Betty Shaw is a 23 y.o. at 20w1d Perceiving movement. Denies bleeding, abnormal discharge, notable cramping. Still having gastritis issues, but better. Objective BP 100/58 Ht 165.1 cm (5' 5) Wt 116 lb 12.8 oz (53 kg) LMP 04/26/2024 BMI 19.44 kg/m TW lb 12.8 oz (0.816 kg) Physician US interpretation: Single living intrauterine gestation with growth at the 90th percentile for the established gestational age of 20 weeks and 1 day. The placenta is anterior. The anatomy survey, cervical length, placentation and amniotic fluid are normal within the limitations of this study. Plan to reassess growth in the 3rd trimester. Assessment and Plan Reviewed ultrasound findings, plan to reassess growth at 28 weeks Surveillance of EDC by LMP = 16 week US O+/I/-/-, HIV and RPR NR Genetics: NIPT LR XX, carrier screening negative 08/16 Anatomy: 20 weeks anatomy complete, EFW 90% - repeat EFW at 28 weeks Anterior placenta GCT: 26-28 weeks 3rd trim CBC/HIV/RPR Tdap: 27+ weeks GBS: 36 weeks, or sooner if early delivery indicated Social Barriers: malaysian speaking primary/somewhat limited cymro Mode of feeding: Method of contraception: Delivery Planning: TBD Gastritis/constipation Predates - consider GI referral Regimen: Protonix, MiraLax, simethicone Consider retesting for H pylori Dereje Bui MD Progress Notes - Clinical [place] pport - 08/16/2024 - GA:16w0d 08/16/2024 - wd - Mary Ahn RN Interpretor used due to limited cymro. Pt reports no issues other then wanting a rx for omeprazole. Dating US completed in office. TANISHA reviewed with the pt. PNL ordered today. Pap and STI testing to be collected today. NIPT discussed with the pt. She would like to think about the test. Tdap recommendations reviewed with the pt. OB call schedule reviewed with the pt. NOB (malaysian packet) provided to the pt. Pt questions were answered. Progress Notes - Office Visi t - 08/16/2024 - GA:16w0d 08/16/2024 - w0d - Dereje Bui MD New OB Visit Btety Shaw is a 23 y.o. at 16w0d [employer]jo[employer] ball r[employer] Ester [phone] Patient is feeling a little nervous about the , but overall good emotionally. Complains of issues with gas and constipation that predate . Wondering what she can take. She also has an history of gastritis, which affects her appetite. She has been treated for H pylori in the past. Histories Medical has no past medical history on file. Surgical has a past surgical history that includes Appendectomy. Social reports that she has never smoked. She has never used smokeless tobacco. reports no history of drug use. reports being sexually active and has had partner(s) who are male. Meds Current Outpatient Medications: vit 99-rpiv-pznqu-dha 27mg iron- 800 mcg-250 mg capsule, Take by mouth, Disp: , Rfl: Allergies Patient has no known allergies. Objective Vitals BP 100/68 Ht 165.1 cm (5' 5) Wt 52.2 kg (115 lb) LMP 04/26/2024 BMI 19.14 kg/m Body mass index is 19.14 kg/m . Physical Exam General Examination: GENERAL APPEARANCE: well developed, well nourished, in no acute distress. HEAD: atraumatic, normocephalic. NEUROLOGIC: cranial nerves 2-12 grossly intact. PSYCH: alert, oriented, judgement and insight good, mood/affect normal. Gynecological: EXTERNAL GENITALIA: no lesions, no erythema, no evidence of trauma. URETHRAL MEATUS: normal. VAGINA: normal mucosa, without lesions or abnormal discharge CERVIX: nontender, no lesions. ANUS: not examined. RECTAL: not examined. Assessment/Plan Reviewed ultrasound findings, size consistent with dates, final TANISHA based on LMP Reviewed options for and maternal genetic screening Pap collected Prescriptions for simethicone, MiraLax and Protonix sent electronically. If symptoms not improving sufficiently, consider retesting for H pylori and referral to gastroenterology. Reviewed practice provider and call structure, option for physician only or midwifery care. Surveillance of EDC by LMP = 16 week US Labs: ordered Genetics: NIPT, carrier screening drawn 08/16 Anatomy: 20 weeks Anterior placenta GCT: 26-28 weeks 3rd trim CBC/HIV/RPR Tdap: 27+ weeks GBS: 36 weeks, or sooner if early delivery indicated Social Barriers: malaysian speaking/ limited cymro Mode of feeding: Method of contraception: Delivery Planning: TBD Gastritis/constipation Predates - consider GI referral Regimen: Protonix, MiraLax, simethicone Consider retesting for H pylori Diagnoses and all orders for this visit: Encounter for related examination in second trimester (Z34.92) (Primary) Encounter for supervision of normal in first trimester, unspecified (Z34.91) - CBC without differential; Future - Drugs of Abuse Screen, Urine with Reflex Confirmation; Future - Hemoglobin A1c; Future - Hemoglobin analysis by electrophoresis; Future - Hepatitis B Surface Antigen Blood; Future - Hepatitis C antibody Blood; Future - HIV 1/2 Antibody plus p24 Antigen Blood; Future - Measles IgG antibody Blood; Future - RPR Blood; Future - Rubella IgG antibody Blood; Future - Type and screen; Future - Urine culture Urine, clean voided; Future - Varicella Zoster IgG antibody Blood; Future Dereje Bui MD Last Filed Vital Signs Vital Sign Reading [...] 10/12/2024 3:27 PM CDT Plan of Treatment Health Maintenance Due Date Last Done Comments DTaP/Tdap/Td Vaccine (1 - Tdap) 2009 Varicella Vaccines (1 of 2 - 13+ 2-dose series) 11/19/2011 HPV Vaccines (1 - 3-dose series) 2013 Hepatitis B Screening 2016 Regular Well Visit/Exam 18-64 2016 Influenza Vaccine (#1) 2024 Cervical Cancer Screening 08/16/2025 08/16/2024 Depression Screening 08/16/2025 08/16/2024 Hepatitis C Screening Completed 08/16/2024 Pneumococcal vaccine <65 Aged Out No longer eligible based on patient's age to complete this topic Procedures Procedure Name Priority Date/Time Associated Diagnosis [...] Plan to reassess growth in the 3rdtrimester. us Dereje Bui MD IMG OB US PROCEDURES [...] last revised on 2020. Testing performed by: [facility], [address] [place] [address]., [id number] Blood 08/28/2024 12:4 3 PM CDT 08/28/2024 12:51 PM CDT Dereje Bui MD LAB BLOOD ORDERABLES Final Result LE [address] [facility] Department [place] [address] * PANORAMA TEST (08/16/2024 2:01 PM CDT) REPORT SUMMARY LOW RISK 08/22/2024 1:30 PM CDT [facility] Comment:LOW RISK REPORT NOTE See Notes 08/22/2024 1:30 PM CDT [facility] GENDER OF FETUS Female 1:30 PM CDT [facility] FRACTION 15.0% 08/22/2024 1:30 PM CDT [facility] TRISOMY 21 RESULT TEXT Low Risk 08/22/2024 1:30 PM CDT [facility] TRISOMY 21 AGE-BASED RISK TEXT 03/31,062 (0.09%) 08/22/2024 1:30 PM CDT [facility] [...] LABORATORY 22Q11.2 DELETION SYNDROME POPULATION-BASED RISK TEXT 2,000 08/22/2024 1:30 PM CDT [facility] 22Q11.2 DELETION SYNDROME RISK SCORE TEXT 12,000 08/22/2024 1:30 PM CDT [facility] FOOTNOTES See Notes 08/22/2024 1:30 PM CDT [facility] Comment: Testing Methodology DNA isolated from maternal blood, which contains placental DNA, is amplified at specific loci using a targeted PCR assay and is sequenced using a high- throughput sequencer. fraction is determined using a proprietary algorithm incorporating data from single nucleotide polymorphism-based (SNP-based) next-generation sequencing [Amy E et al. Obstet Gynecol. 2014 Oct;124(2 [...] sequencing of this test were performed by [facility] [id number] [place] [address] [address], [place] [address] (CLIA ID [id number]). The data analysis and reporting of this test were performed by [facility] [address] [facility], [place] [address] (CLIA ID [id number]). The performance characteristics of this test were developed by [employer]CLIA ID [id number]). This test has not been cleared or approved by the U.S. Food and Drug Administration (FDA). These laboratories are regulated under CLIA as qualified to perform high-complexity testing. 2024 [employer]. All Rights Reserved. Please refer to the attached PDF report Reviewed By: Rafael Bowen M.D., Ph.D., [facility], Senior Building Supervisor [facility] Legal Instructor: Kristyn Borrego, Ph.D., [facility] IF THE ORDERING PROVIDER HAS QUESTIONS OR WISHES TO DISCUSS THE RESULTS, PLEASE CONTACT US AT [phone] #[phone]. Ask for the [facility] counselor business operations coordinator. Blood specimen (specimen) Venous blood specimen / Unknown 08/16/2024 2:01 PM CDT 08/22/2024 1:30 PM CDT Dereje Bui MD LAB GENETIC TESTING Final Result [facility] [address] [place] [address], [facility] * Horizon 14 (Valentino-Ethnic Standard) (08/16/2024 2:01 [...] Negative 08/24/2024 4:34 PM CDT [facility] [id number] SYNDROME Negative 08/24/2024 4:34 PM CDT [facility] SPINAL MUSCULAR ATROPHY Negative 08/24/2024 4:34 PM CDT [facility] Comment: NEGATIVE Spinal Muscular Atrophy (SMA) Results SMN1: Two copies; g.37017T>G: absent; the absence of the g.00502E>G variant decreases the chance to be a silent (2+0) carrier. JUAN-SACHS DISEASE Negative 025 4:34 PM CDT [facility] PANEL NOTES See Notes 08/24/2024 4:34 PM CDT [facility] REPORT NOTE See Notes 08/24/2024 4:34 PM CDT [facility] FOOTNOTES See Notes 08/24/2024 4:34 PM CDT [facility] Comment: Please see the attached PDF for information regarding Conditions, Methodology, Disclaimers, and further information. Test performed by [facility]. : [id number] [facility] [facility] [address], [place] [address] CLIA ID #[id number] [employer] Legal Instructor: Kristyn Borrego, Ph.D., [facility] Blood specimen (specimen) Venous blood specimen / Unknown 08/16/2024 2:01 PM CDT 08/24/2024 4:34 PM CDT us Dereje Bui MD LAB GENETIC TESTING Final Result [facility] [address] [place], [place] [address] * ThinPrep processing (Molecular component) (08/16/2024 1:50 PM CDT) [facility] ThinPrep processing (Molecular component) Specimen received for processing. [facility] Comment:Testing performed by : [facility], [address] [place]., [address] Endocervical 08/16/2024 1:50 PM CDT 08/18/2024 2:29 PM CDT Dereje Bui MD LAB BODY FLUIDS AND STOOLS ORDERABLES Final Result LE [address] [facility] Department [place] [address] [facility] * Pap with reflex to High Risk HPV and Genotyping (Cytology Component) (08/16/2024 1:50 PM CDT) Thin prep (Pap test) 08/16/2024 1:50 PM CDT 08/17/2024 9:44 AM CDT Narrative PATHOLOGY [facility] - 08/20/2024 7:42 AM CDT EPIC results best viewed via link to PDF [facility] [place] [address] [place] [address] Note to Patients: This report may contain [...] Gender: F : 2000 (Age: 23) Address: [address] [place] [address] Hospital #: [id number] Service: DEFAULT Location: Patient Type: E SPECIMEN Taken: 08/16/2024 Received: 08/17/2024 Accessioned: 08/17/2024 [...] clinical information and biopsy results as indicated. [facility] Clinical Laboratory Improvement Amendments (CLIA) mandate that cytologic and histologic results be correlated for laboratory research associate quality control qc & improvement standards. FOR ALL HIGH-GRADE CASES [...] determined by the Surgical Pathology Department at [facility] as part of an ongoing senior manager quality assurance program and in compliance with federally mandated [...] determined by the Surgical Pathology Department of [facility]. It has not been cleared or approved by the U. S. Food and Drug Administration. Dereje Bui MD LAB CYTOLOGY ORDERABLES Fi nal Result PATHOLOGY [facility] * N. gonorrhoeae/C. trachomatis Amplification Vaginal (08/16/2024 1:50 PM CDT) C. trachomatis Not Detected [facility] Comment:Testing performed by : [facility], [address] [place] [address]., [address] N. gonorrhoeae Not Detected [facility] Comment: Interpretive Data This assay detects Chlamydia trachomatis and Neisseria gonorrhoeae by nucleic acid amplification testing (NAAT). This assay has been cleared by the [place] Food and Drug administration. The performance characteristics of this test have been verified by the [facility] Molecular Infectious Disease laboratory. The performance characteristics of this test have not been evaluated in individuals less than 14 years of age. Current Interpretive Data was last revised on 2023. Testing performed by: [facility], [address] [place] [address]., [address] Vaginal (None) 08/16/2024 1: 50 PM CDT 08/16/2024 9:30 PM CDT Dereje Bui MD LAB MICROBIOLOGY - GENERAL ORDERABLES Final Result Performing Organization Address City/[facility]/ZIP Co de Phone Number LE 88[address] [facility] Department [place] [address] [facility] * Trichomonas vaginalis PCR Vaginal (08/16/2024 1:50 PM CDT) Trichomonas DNA Not Detected [facility] Comment: Interpretive Data This assay detects Trichomonas vaginalis by nucleic acid amplification testing (NAAT). This assay has been cleared by the [place] Food and Drug administration. The performance characteristics of this test have been verified by the [facility] Molecular Infectious Disease laboratory. The performance of this test has not been evaluated in individuals less than 18 years of age. Current Interpretive Data was last revised on 2023. Testing performed by: [facility], [address] [place]., [address] Vaginal 08/16/2024 1:50 PM CDT 08/16/2024 9:30 PM CDT Dereje Bui MD LAB MICROBIOLOGY - GENERAL ORDERABLES Final Result LE [address] [facility] Department [place] [address] [facility] * Drugs of Abuse Screen, Urine with Reflex Confirmation (08/16/2024 1:20 PM CDT) [facility] Amphetamine, ur Not Detected [facility] 500ng/mL Comment: Interpretive Data - Amphetamines: Samples containing greater than 500 ng/mL d-methamphetamine or other cross-reacting amphetamine compounds are reported as positive. Amphetamine immunoassays are subject to significant false positive rates due to cross-reactivity of non-amphetamine drugs. Confirmatory testing required for definitive results. Current Interpretive Data was last reviewed 2022. Testing performed by: [address] [address] Barbiturates, ur Not Detected CutOff 200ng/mL [facility] Comment: Interpretive Data - Barbiturates: Samples containing greater than 200 ng/mL secobarbital or other cross-reacting barbiturate compounds are reported as positive. False positive and false negative results are possible. Confirmatory testing required for definitive results. Current Interpretive Data was last reviewed 2022. Testing performed by: [address] [address] Benzodiazepines, ur Not Detected CutOff 100ng/mL LE Comment: Interpretive Data - Benzodiazepines: Samples containing greater than 100 ng/mL nordiazepam or other cross-reacting compounds are reported as positive. False positive and false negative results are possible. Confirmatory testing required for definitive results. Current Interpretive Data was last reviewed 2022. Testing performed by: [address] [address] Cannabinoids, ur Not Detected CutOff 50 ng/mL [facility] Comment: Interpretive Data - Cannabinoids: Samples containing greater than 50 ng/mL delta-9 THC -COOH or other cross- reacting compounds are reported as positive. False positive and false negative results are possible. Confirmatory testing required for definitive results. Current Interpretive Data was last reviewed 2022. Testing performed by: [address], [place]., [address] Cocaine, ur Not Detected CutOff 150ng/mL [facility] Comment: Interpretive Data - Cocaine: Samples containing greater than 150 ng/mL benzoylecgonine or other cross- reacting compounds are reported as positive. False positive and false negative results are possible. Confirmatory testing required for definitive results. Current Interpretive Data was last reviewed 2022. Testing performed by: [address], [place]., [address] Fentanyl, Ur Not Detected Cutoff 1 ng/mL [facility] Comment: Interpretive Data - Fentanyl: Samples containing greater than 1 ng/mL fentanyl or other cross-reacting fentanyl compounds are reported as positive. False positive and false negative results are possible. Confirmatory testing required for definitive results. Current Interpretive Data was last reviewed 2022. Testing performed by: [address] [address] Methadone, ur Not Detected CutOff 300ng/mL [facility] Comment: Interpretive Data - Methadone: Samples containing greater than 300 ng/mL d,l-methadone or other cross-reacting compounds are reported as positive. False positive and false negative results are possible. Confirmatory testing required for definitive results. Current Interpretive Data was last reviewed 2022. Testing performed by: [address], [place]., [address] Opiates, ur Not Detected CutOff 300ng/mL [facility] Comment: Interpretive Data - Opiates: Samples containing greater than 300 ng/mL morphine or other cross-reacting compounds are reported as positive. False positive and false negative results are possible. Confirmatory testing required for definitive results. Current Interpretive Data was last reviewed 2022. Testing performed by: [address], [place]., [address] Oxycodone, ur Not Detected CutOff 100ng/mL LE Comment: Interpretive Data - Oxycodone: Samples containing greater than 100 ng/mL oxycodone or other cross-reacting compounds are reported as positive. False positive and false negative results are possible. Confirmatory testing required for definitive results. Current Interpretive Data was last reviewed 2022. Testing performed by: [address] [address] Phencyclidine, ur Not Detected CutOff 25 ng/mL LE Comment: Interpretive Data - Phencyclidine: Samples containing greater than 25 ng/mL phencyclidine or other cross-reacting compounds are reported as positive. False positive and false negative results are possible. Confirmatory testing required for definitive results. Current Interpretive Data was last reviewed 2022. Testing performed by: [facility], [address] [place] [address]., [id number] Urine Creatinine 78 mg/dL LE Comment: Interpretive Data Urine Creatinine: < 10 mg/dL is extremely dilute = or > 10 but < 20 mg/dL is dilute = or > 20 mg/dL is normal Current Interpretive Data was last revised on 2017. Testing performed by: [address] [address] Urine 08/16/2024 1:20 PM CDT 08/16/2024 6:15 PM CDT Narrative LE - 08/16/2024 6:43 PM CDT Drug of Abuse screening is performed by immunoassay for medical purposes only. This is not to be used for Pain Management purposes. If Detected, confirmation testing will be performed for Amphetamines, Cocaine, Fentanyl, Methadone, Opiates, Oxycodone or Phencyclidine. us Dereje Bui MD LAB URINE ORDERABLES Final Result LE [address] [facility] Department [place] [address] * Urine culture Urine, clean voided (08/16/2024 1:20 PM CDT) Report Final Report: Less than 100,000 colonies/mL (clinically insignificant growth based on current clinical standards) Comment:Testing performed by : [facility], [address] [place]., [address] Organism (CLINICALLY INSIGNIFICANT GROWTH LE Urine, clean voided 08/16/2024 1:20 PM CDT 08/16/2024 9:23 PM CDT Narrative LE - 08/18/2024 1:44 PM CDT Testing performed by [facility] Microbiology Laboratory ([phone]) Dereje Bui MD LAB MICROBIOLOGY - GENERAL ORDERABLES Final Result Performing Organization Address City/[facility] Co de Phone Number [address] [place] [address] * HIV 1/2 Antibody plus p24 Antigen Blood (08/16/2024 12:22 PM CDT) Pathologist [facility] [place] HIV 1/2 ab + p24 ag Nonreactive [...] GENERAL ORDERABLES Final Result Performing Organization Address City/[facility]/ZIP Co de Phone Number [address] [place] [address] * Hemoglobin analysis by electrophoresis (08/16/2024 12:22 PM CDT) Pathologist [facility] [place] RBC 4.25 3.90 - 5.20 M/cumm Comment:Testing performed by : [facility], [address] [facility] [place]., [address] Hgb 13.0 11.9 - 15.5 g/dL LE REY Comment:Testing performed by : [facility], [address] [place]., [address] MCV 89.4 81.3 - 96.4 fL LE REY Comment:Testing performed by : [facility], 1 [facility], [address] Rdw 13.3 11.1 - 14.9 % LE REY Comment:Testing performed by : [facility], [address] [facility], [address] Hgb electrophoresis , interp Please see comment LE REY Comment: Normal hemoglobin pattern for age Reviewed and signed by Raulito Aden MD 08/17/2024 Testing performed by: [facility], [address] [facility], [address] Hgb A 97.7 96.0 - 98.5 % LE REY Comment:Testing performed by : [facility], [address] [facility], [address] Hgb A2 2.3 1.5 - 3.2 % LE REY Comment:Testing performed by : [facility], [address] [facility], [address] Hgb F <0.4 0.0 - 0.9 % LE REY Comment:Testing performed by : [facility], [address] [facility], [address] Blood 08/16/2024 12:2 2 PM CDT 08/16/2024 1:44 PM CDT us Dereje Bui MD LAB BLOOD ORDERABLES Final Result LE [address] [facility] Department [place] [address] * Hepatitis C antibody Blood (08/16/2024 12:22 PM CDT) Hep C Ab Nonreactive Nonreactive Comment: Antibodies [...] GENERAL ORDERABLES Final Result Performing Organization Address City/[facility] Co de Phone Number [address] [address] * (ABNORMAL) Measles IgG antibody Blood (08/16/2024 12:22 PM CDT) Pathologist [facility] [place] Measles IgG Nonreactiv e(A) Comment: Non-reactive: No detectable antibody to measles. Such individuals are presumed to be uninfected and susceptible to primary infection. Testing performed by: [facility], [address] [facility] [place] [address] Blood 08/16/2024 12:2 2 PM CDT 08/16/2024 5:48 PM CDT Dereje Bui MD LAB MICROBIOLOGY - GENERAL ORDERABLES Final Result Performing Organization Address City/[facility] Co de Phone Number [address] [address] * ABO/Rh (08/16/2024 12:22 PM CDT) Pathologist [facility] [place] ABO/Rh O Positive Comment:Testing performed by : [facility], [address] [place] [address]., [address] Blood 08/16/2024 12:2 2 PM CDT 08/16/2024 1:39 PM CDT Narrative [facility] - 08/16/2024 2:22 PM CDT Has the patient had Daratumumab or Isatuximab in the past 6 months?->Unknown Hx of or candidate for Bone Marrow/Stem Cell transplant?->No Dereje Bui MD LAB BLOOD BANK TEST ORDERA BLES Final Result Performing Organization Address [facility]/ZIP Co de Phone Number [address] [place] [address] * Rubella IgG antibody Blood (08/16/2024 12:22 PM CDT) Rubella IgG Reactive Reactive Blood 08/16/2024 12:2 2 PM CDT 08/16/2024 4:29 PM CDT Dereje Bui MD LAB MICROBIOLOGY - GENERAL ORDERABLES Edited Result - Final Performing Organization Address [facility] Co de Phone Number [address] [address] * RPR Blood (08/16/2024 12:22 PM CDT) RPR Nonreactive Nonreactive Comment:Testing performed by : [facility], [address] [facility], [place]., [address] Blood 08/16/2024 12:2 2 PM CDT 08/16/2024 5:48 PM CDT Dereje Bui MD LAB MICROBIOLOGY - GENERAL ORDERABLES Final Result Performing Organization Address [facility]/ZIP Co de Phone Number [address] [place] [address] * Hepatitis B Surface Antigen Blood (08/16/2024 12:22 PM CDT) HepBsAg Nonreactive Nonreactive Blood 08/16/2024 12:2 2 PM CDT 08/16/2024 4:29 PM CDT Dereje Bui MD LAB MICROBIOLOGY - GENERAL ORDERABLES Final Result LE [address] [facility] Department [place] [address] * (ABNORMAL) CBC without differential (08/16/2024 12:22 PM CDT) WBC 10.00(H) 3.80 - 9.90 K/cumm Comment:Testing performed by : [address] [address] Hgb 13.0 11.9 - 15.5 g/dL LE Comment:Testing performed by : [address] [address] Hct 38.5 35.6 - 45.5 % LE Comment:Testing performed by : [address] [address] Plt 320 150 - 400 K/cumm LE Comment:Testing performed by : [address] [address] MPV 10.1 9.1 - 12.3 fL LE Comment:Testing performed by : [address] [address] RBC 4.25 3.90 - 5.20 M/cumm LE Comment:Testing performed by : [address] [address] MCV 90.6 81.3 - 96.4 fL LE Comment:Testing performed by : [address] [address] MCH 30.6 27.1 - 33.3 pg LE Comment:Testing performed by : [address] [address] MCHC 33.8 32.3 - 35.7 g/dL LE Comment:Testing performed by : [address] [address] RDW CV 13.2 11.1 - 14.9 % LE Comment:Testing performed by : [address] [address] RDW SD 43.1 35.7 - 48.1 fL LE Comment:Testing performed by : [address] [address] NRBC abs 0.00 0.00 - 0.01 K/cumm LE REY Comment:Testing performed by : [address] [address] Blood 08/16/2024 12:2 2 PM CDT 08/16/2024 1:44 PM CDT Dereje Bui MD LAB BLOOD ORDERABLES Final Result Performing Organization Address [facility]/ZIP Co de Phone Number [address] [place] [address] * Antibody screen (08/16/2024 12:22 PM CDT) [facility] Jillian, indirect, Gel Interpretation Negative ABSC Comment:Testing performed by : [address] [address] Blood 08/16/2024 12:2 2 PM CDT 08/16/2024 1:39 PM CDT Narrative LE - 08/16/2024 2:22 PM CDT Has the patient had Daratumumab or Isatuximab in the past 6 months?->Unknown Hx of or candidate for Bone Marrow/Stem Cell transplant?->No Dereje Bui MD LAB BLOOD BANK TEST ORDERA BLES Final Result Performing Organization Address City/[facility]/ZIP Co de Phone Number [address] [place] [address] * (ABNORMAL) Varicella Zoster IgG antibody Blood (08/16/2024 12:22 PM CDT) [facility] VZV IgG Nonreacti ve(A) Reactive Comment: Non-reactive: No detectable antibody to Varicella-zoster virus. Such individuals are presumed to be uninfected and to be susceptible to primary infection. Testing performed by: [facility], [address] [facility], [place]., [address] Blood 08/16/2024 12:2 2 PM CDT 08/16/2024 5:48 PM CDT Dereje Bui MD LAB MICROBIOLOGY - GENERAL ORDERABLES Final Result Performing Organization Address [facility] Co de Phone Number [place] [address] [facility] [place] [address] * (ABNORMAL) Hemoglobin A1c (08/16/2024 12:22 PM CDT) Hgb A1C 5.8(H) 4.0 - 5.6 % Comment:Testing performed by : [facility], [address] [place] [address]., [address] Estimated Average Glucose 120 mg/dL [facility] Comment: The ADA recommends reporting an estimated Average Glucose (eAG) with all Hemoglobin A1c results using the equation derived from a study of 507 normal and diabetic adults. Minority populations were underrepresented and children were not included. (Diabetes Care 31:2878-6997, 2008). The eAG is not equivalent to a fasting glucose. Testing performed by: [address] [address] Blood 08/16/2024 12:2 2 PM CDT 08/16/2024 1:44 PM CDT Dereje Bui MD LAB BLOOD ORDERABLES Final Result Performing Organization Address [facility] Co de Phone Number [facility] [address] [facility] [place] [place] [address] * US Ob Under 14 Weeks (08/16/2024 [...] Final Result from Last 3 Months Insurance [facility] OTHER Address: [address] [place] [address] [facility] Care Teams It Engineer Relationship Specialty Start Date End Date No, Physician PCP - General 07/06/24
[2024-10-17 17:51] LABS: BEDSIDEPREGUCG Positive (Negative)
--- NOTE | 2024-10-17 17:53 | PC.NURSE ---
A0 last period was 04/26/24
[2024-10-17 17:58] LABS: Add Urine Microscopic? NO; Appearance Urine Clear (Clear); Glucose Urine UA Negative (Negative); Leukocyte Esterase Ur Negative LEU/UL (Negative); Nitrate Urine Negative (Negative); Specific Grav Ur 1.026 (1.001-1.035)
[2024-10-17] MEDS: ACETAMINOPHEN 325 MG TABLET 650 MG PO (18:06)
[2024-10-17 19:01] LABS: Hematocrit 31.1 % (37.0-47.0); Hemoglobin 10.4 g/dL (12.0-15.0); Immature Granulocyte Percent A 0.8 % (0-0.5); Lymphocytes Absolute Auto 1.64 K/mm3 (0.9-3.2); Mean Corpuscular HGB Conc 33.4 g/dl (32-36); Mean Corpuscular Hemoglobin 31.1 pg (26-34); Mean Corpuscular Volume 93.1 fl (80-100); Nucleated Red Blood Cells Absolute Auto 0.000 K/mm3 (0.0-0.012); Nucleated Red Blood Cells Perc 0.0 % (0.0-0.2); Platelet Count Result 310 k/mm3 (150-375); Red Blood Count 3.34 M/mm3 (4.2-5.4); White Blood Count 9.8 K/mm3 (4.5-10.0)
[2024-10-17 19:38] LABS: Alanine Aminotransferase 21 U/L (6-35); Albumin Level 3.4 g/dL (3.5-5.1); Alkaline Phosphatase 56 U/L (38-126); Anion Gap 5 mmol/L (4-12); Aspartate Amino Transferase 28 U/L (14-36); Bilirubin,Total 0.3 mg/dL (0.2-1.3); Blood Urea Nitrogen 14 mg/dL (7-17); Calcium 9.2 mg/dL (8.4-10.2); Carbon Dioxide 23 mmol/L (22-30); Chloride 103 mmol/L (98-107); Estimated Glomerular Filt Rate > 60; Glucose 99 mg/dL (65-110); Potassium 3.4 mmol/L (3.4-5.0); Sodium 131 mmol/L (137-145); Total Protein 6.5 g/dL (6.3-8.2)
--- NOTE | 2024-10-17 19:54 | OBADM ---
This patient, Betty West, admitted to the OB room OB Post 117 for observation. Patient/family oriented to hospital policies and general routines including ID bracelet, bed and alarms, visiting hours, pain management, procedures, bathroom and other care routines, personal items, smoking policy, room service/diet, and visiting hours. Patient/Family are encouraged to report perceived risks to care and to ask questions if they do not understand what they are told or what they should do.
--- NOTE | 2024-10-18 14:10 | P.PNOB_ITS ---
OB - Triage/Final Diagnosis Visit Information Date of evaluation: 10/17/24 Reason for evaluation: other (trauma in ) Comments/Additional reasons for admission: I have assessed the risk for this patient, Betty West, and determined that she would benefit from observation care. Evaluation Laboratory results: Laboratory Tests 10/17/24 10/17/24 10/17/24 17:48 17:49 18:28 WBC 9.8 RBC 3.34 L Hgb 10.4 L Hct 31.1 L MCV 93.1 MCH 31.1 MCHC 33.4 RDW 13.3 Plt Count 310 MPV 9.9 Immature Gran % (Auto) 0.8 H Neut % (Auto) 74.3 H Lymph % (Auto) 16.8 L [place] % (Auto) 6.8 Eos % (Auto) 0.9 Baso % (Auto) 0.4 Lymph # (Auto) 1.64 [place] # (Auto) 0.7 H Eos # (Auto) 0.1 Baso # (Auto) 0.0 Abs Immat Gran (auto) 0.08 H Absolute Neuts (auto) 7.3 H Absolute Nucleated RBC 0.000 Nucleated RBC % 0.0 Sodium 131 L Potassium 3.4 Chloride 103 Carbon Dioxide 23 Anion Gap 5 BUN 14 Creatinine 0.81 Estim Creat Clear Calc Not Reportable Estimated GFR > 60 Glucose 99 Calcium 9.2 Total Bilirubin 0.3 AST 28 ALT 21 Alkaline Phosphatase 56 Total Protein 6.5 Albumin 3.4 L Urine Color Yellow Urine Appearance Clear Urine pH 6.0 Ur Specific [place] 1.026 Urine Protein Negative Urine Glucose (UA) Negative Urine Ketones 2+ H Ur Blood (Man) Negative Urine Nitrate Negative Urine Bilirubin Negative Urine Urobilinogen 1.0 Leukocyte Esterase Rfl Negative POC Urine HCG, Qual Positive Blood Type O Positive Antibody Screen Negative Screen Baby's Blood Type Baby's VALERIANO Doses of RhIg Required 10/17/24 18:28 WBC RBC Hgb Hct MCV MCH MCHC RDW Plt Count MPV Immature Gran % (Auto) Neut % (Auto) Lymph % (Auto) [place] % (Auto) Eos % (Auto) Baso % (Auto) Lymph # (Auto) [place] # (Auto) Eos # (Auto) Baso # (Auto) Abs Immat Gran (auto) Absolute Neuts (auto) Absolute Nucleated RBC Nucleated RBC % Sodium Potassium Chloride Carbon Dioxide Anion Gap BUN Creatinine Estim Creat Clear Calc Estimated GFR Glucose Calcium Total Bilirubin AST ALT Alkaline Phosphatase Total Protein Albumin Urine Color Urine Appearance Urine pH Ur Specific [place] Urine Protein Urine Glucose (UA) Urine Ketones Ur Blood (Man) Urine Nitrate Urine Bilirubin Urine Urobilinogen Leukocyte Esterase Rfl POC Urine HCG, Qual Blood Type Antibody Screen Negative Screen TNP Baby's Blood Type TNP Baby's VALERIANO Not Reportable Doses of RhIg Required 0 Vital signs: Vital Signs - 24 hr 10/17/24 16:45 10/17/24 18:52 10/17/24 19:00 Temperature 97.7 F Pulse Rate 107 H 83 88 Respiratory Rate 16 Blood Pressure 106/62 103/57 L 103/64 Pulse Oximetry 99 Oxygen Delivery Room Air 10/17/24 19:15 10/17/24 19:30 10/17/24 19:45 Temperature Pulse Rate 83 89 79 Respiratory Rate Blood Pressure 96/75 L 109/69 100/57 L Pulse Oximetry Oxygen Delivery 10/17/24 20:00 Temperature Pulse Rate 79 Respiratory Rate Blood Pressure 103/63 Pulse Oximetry Oxygen Delivery
== END 2024-10-17 20:10 | disposition home or self-care (01) ==
LOC: ANHED 18:16 → ANHOBPP 18:46
PROVIDERS: Admitting Provider Student in an Organized Health Care Education/Training Program; Emergency Provider Student in an Organized Health Care Education/Training Program; Visit Provider Student in an Organized Health Care Education/Training Program
DX: O9A.212 Injury, poisoning and certain other consequences of external causes complicating pregnancy, second trimester (principal); S39.91XA Unspecified injury of abdomen, initial encounter; R10.9 Unspecified abdominal pain; Z3A.25 25 weeks gestation of pregnancy; W22.09XA Striking against other stationary object, initial encounter
CPT/HCPCS: 36415; 80053; 81003; 81025; 85025; 85461; 86850; 86900; 86901; A9270; G0378; G0379